=== PATIENT | female | born 1940 | race Two or more races ===

== ENCOUNTER 2023-08-28 11:46 | Emergency (ER) | payer MEDICARE, MEDICAID ==
[~2023-08-28] VITALS: Ht 139.7 cm; Wt 68.9 kg
[2023-08-28] MEDS: IV NS 0.9% 500 ML BAG IV ONE (12:00)
[2023-08-28] MEDS ORDERED: GABA-532 PO (12:24)
[2023-08-28] MEDS ORDERED: ACET-2605 PO (12:24)
[2023-08-28] MEDS ORDERED: ERGO500093 PO (12:24)
[2023-08-28] MEDS ORDERED: ALLO100T PO (12:24)
[2023-08-28] MEDS ORDERED: OMEP20CA15 PO (12:24)
[2023-08-28] MEDS ORDERED: HYDR-4077 PO (12:24)
[2023-08-28] MEDS ORDERED: FERR325T29 PO (12:24)
[2023-08-28] MEDS ORDERED: LISI20TA30 PO (12:24)
[2023-08-28 12:29] LABS: BASOPHILS % (AUTO) 0.4 % (0.0-2.0); EOSINOPHILS # (AUTO) 0.1 K/uL (0.0-0.7); EOSINOPHILS % (AUTO) 1.1 % (0.0-6.0); HEMATOCRIT 34 % (33-45); HEMOGLOBIN 10.7 g/dL (11.5-14.8); LYMPHOCYTES # (AUTO) 1.4 K/uL (0.8-4.8); LYMPHOCYTES % (AUTO) 12.5 % (20.0-44.0); MEAN CORPUSCULAR HEMOGLOBIN 29 PG (26.0-33.0); MEAN CORPUSCULAR HGB CONC 32 g/dl (31.0-36.0); MEAN CORPUSCULAR VOLUME 91 fL (82-100); MONOCYTES # (AUTO) 0.9 K/uL (0.1-1.30); MONOCYTES % (AUTO) 8.3 % (2.0-12.0); NEUTROPHILS # (AUTO) 8.7 K/uL (1.8-8.9); NEUTROPHILS % (AUTO) 77.7 % (43.0-81.0); PLATELET COUNT (AUTO) 230 K/uL (150-450); RED BLOOD CELL COUNT(AUTO) 3.73 MIL/uL (4.0-5.2); RED CELL DISTRIBUTION WIDTH 15.9 % (11.5-15.0); WHITE BLOOD COUNT (AUTO) 11.2 K/uL (4.3-11.0)
[2023-08-28 12:42] LABS: CALCIUM, SERUM 9.1 mg/dL (8.5-10.1); CARBON DIOXIDE 26 mmol/L (21-32); CHLORIDE 105 mmol/L (98-107); CREATININE 1.4 mg/dL (0.6-1.3); GLUCOSE 142 mg/dL (74-106); POTASSIUM 3.7 mmol/L (3.5-5.1); SODIUM SERUM 140 mmol/L (136-145); UREA NITROGEN, BLOOD 20 mg/dL (7-18)
[2023-08-28 12:48] LABS: ALANINE AMINOTRANSFERASE 24 U/L (12-78); ALBUMIN 3.4 g/dL (3.4-5.0); ALKALINE PHOSPHATASE 93 U/L (46-116); ASPARTATE AMINOTRANSFERASE 18 U/L (15-37); BILIRUBIN,DIRECT 0.1 mg/dL (0.0-0.2); BILIRUBIN,TOTAL 0.2 mg/dL (0.2-1.0); TOTAL PROTEIN, SERUM 7.7 g/dL (6.4-8.2)
[2023-08-28 12:54] LABS: INR 0.91 (0.91-1.10); PROTHROMBIN TIME 9.4 SECS (9.2-11.1)
[2023-08-28 13:13] LABS: THYROID STIMULATING HORMONE 2.688 uIU/mL (0.358-3.74)
[2023-08-28 14:10] VITALS: BP 110/61; TEMP 98.7; O2SAT 100
== END 2023-08-28 14:10 | disposition home or self-care (01) ==
LOC: ER 11:49
DX: R55 Syncope and collapse (principal); I10 Essential (primary) hypertension; Z79.899 Other long term (current) drug therapy
CPT/HCPCS: 99285; 96360; 71045; 93005; 85025; 80048; 80076; 36415; 84443; 84484; 85730; 83880; J7040